=== PATIENT | female | born 1975 | race Caucasian/White ===

== ENCOUNTER 2017-05-25 07:02 | Day surgery (SDC) | payer OTHER ==
[2017-05-22 10:39] LABS: BASOPHILS % (AUTO) 0 % (0-1); EOSINOPHILS # (AUTO) 0.05 x10^3/uL (0-0.4); EOSINOPHILS % (AUTO) 1 % (1-7); LYMPHOCYTES # (AUTO) 1.54 x10^3/uL (1-3.4); LYMPHOCYTES % (AUTO) 39 % (22-44); MD NO; MEAN CORPUSCULAR HEMOGLOBIN 30.3 pg (27.0-34.8); MEAN CORPUSCULAR HGB CONC 34.4 g/dL (32.4-35.8); MEAN CORPUSCULAR VOLUME 88.1 fL (80-100); MEAN PLATELET VOLUME 7.3 fL (7.4-10.4); MONOCYTES # (AUTO) 0.36 x10^3/uL (0.2-0.8); MONOCYTES % (AUTO) 9 % (2-9); NEUTROPHILS # (AUTO) 1.97 x10^3/uL (1.8-6.8); NEUTROPHILS % (AUTO) 50 % (42-75); PLATELET COUNT 284 x10^3/uL (130-400); RED BLOOD COUNT 4.68 x10^6/uL (3.82-5.3); RED CELL DISTRIBUTION WIDTH 12.8 % (9.6-15.2)
[2017-05-22 10:41] LABS: INTERNATIONAL NORMALIZED RATIO 1.01 (0.93-1.1); PROTHROMBIN TIME 10.5 Seconds (9.6-11.5)
[2017-05-22 10:43] LABS: ALANINE AMINOTRANSFERASE 28 U/L (12-78); ALBUMIN 4.3 g/dL (3.4-5.0); ANION GAP 7 mmol/L (5-15); CALCIUM 8.5 mg/dL (8.5-10.1); CHLORIDE 108 mmol/L (98-107)
[2017-05-22 10:49] LABS: ALKALINE PHOSPHATASE 74 U/L (45-117); CREATININE 0.83 mg/dL (0.55-1.02)
[~2017-05-25] VITALS: Ht 170.2 cm; Wt 69.0 kg
[~2017-05-25 07:02] MED LIST: CHOL2000 PO; CYAN100072 PO; DIAZ5TAB4 PO
[2017-05-25] MEDS ORDERED: LACTATED RINGERS 1,000 ML IV SCH (07:50)
[2017-05-25] MEDS ORDERED: FENTANYL PF 100 MCG/2ML ONE (08:07)
[2017-05-25] MEDS ORDERED: MIDAZOLAM 1 MG/ML, 2ML ONE (08:07)
[2017-05-25 08:10] VITALS: BP 118/78
[2017-05-25] MEDS ORDERED: NALOXONE 0.4 MG/ML, 1ML ONE (08:22)
[2017-05-25] MEDS ORDERED: ONDANSETRON 2MG/ML, 2ML ONE (08:49)
[2017-05-25] MEDS ORDERED: DEXAMETHASONE 4 MG/ML, 1ML ONE (08:49)
[2017-05-25] MEDS ORDERED: PROPOFOL 10 MG/ML, 20ML ONE (08:49)
[2017-05-25] MEDS ORDERED: LIDOCAINE-MPF 2% ,5ML ONE (08:49)
[2017-05-25] MEDS ORDERED: morphine SULFATE 10 MG/ML, 1ML IV PRN (09:30)
[2017-05-25] MEDS ORDERED: ONDANSETRON 2MG/ML, 2ML IVPush PRN (09:30)
[2017-05-25] MEDS ORDERED: OXYcodone 5 MG/5 ML ORAL.SOL UDC PO PRN (09:30)
[2017-05-25] MEDS ORDERED: PROMETHAZINE 25 MG/ML, 1ML IV PRN (09:30)
[2017-05-25] MEDS ORDERED: HYDROcodone/APAP 7.5-325MG/15ML UDC PO PRN (09:30)
[2017-05-25] MEDS ORDERED: LORazepam 2 MG/ML, 1ML IVPush PRN (09:30)
[2017-05-25] MEDS ORDERED: FENTANYL PF 100 MCG/2ML IV PRN (09:30)
[2017-05-25] MEDS ORDERED: ACETAMINOPHEN 325 MG TABLET PO PRN (09:30)
[2017-05-25] MEDS ORDERED: MEPERIDINE/PF 25MG/0.5ML IVPush PRN (09:30)
[2017-05-25] MEDS ORDERED: ACETAMINOPHEN 650 MG/20.3 ML UDC ONE (10:10)
[2017-05-25] MEDS ORDERED: KETOROLAC 30 MG/1 ML ONE (10:10)
[2017-05-25] MEDS ORDERED: ACETAMINOPHEN 500 MG TABLET PO ONE (10:30)
[2017-05-25] MEDS ORDERED: KETOROLAC 30 MG/1 ML IVPush ONE (10:30)
== END 2017-05-25 11:35 ==
LOC: OUT 07:02
PROVIDERS: ATTEND Obstetrics & Gynecology Gynecologic Oncology
DX: N87.1 Moderate cervical dysplasia (principal); Z88.1 Allergy status to other antibiotic agents
CPT/HCPCS: 36415; 57522; 80053; 84703; 85025; 85610; 85730; 86850; 86900; 88305; 88307; J1100; J1885; J2250; J2310; J2405; J2704; J3010; J3490; J7120